=== PATIENT | male | born 2000 | race Caucasian/White ===

== ENCOUNTER 2025-01-28 07:33 | Outpatient (CLI) | payer BC, SELFPAY | END 2025-01-28 07:34 | disposition home or self-care (01) | LOC: AMB 01-29 09:32 | PROVIDERS: Visit Provider Family Medicine | DX: R10.9 Unspecified abdominal pain (principal); R11.2 Nausea with vomiting, unspecified | CPT/HCPCS: A0425; A0433 ==

== ENCOUNTER 2025-01-28 08:02 | Emergency (ER) | payer BC, SELFPAY ==
[2025-01-28] VITALS (9 sets, daily range): BP systolic 117–122; BP diastolic 62–64; PULSE 70–88; RESP 20–24; TEMP 37.5; O2SAT 93–100; BMI 18.0
--- NOTE | 2025-01-28 08:23 | CRLHL7_ITS ---
For Patients: As a result of the Century Cures Act, medical imaging exams and procedure reports are released immediately into your electronic medical record. You may view this report before your referring provider. If you have questions, please contact your health care provider. Indication: Lower abdominal pain Technique: Volumetric multidetector CT images of the abdomen and pelvis were obtained after the administration of intravenous contrast. 69 cc Isovue 370 low osmolar intravenous contrast Comparison: None available. Findings: The lung bases are clear. The liver is normal in attenuation without intrahepatic biliary ductal dilatation. The portal vein is patent. The gallbladder is unremarkable without evidence of radiopaque calculus. There is no significant common biliary ductal dilatation or abrupt cut off. The spleen is normal in enhancement and size. The stomach and duodenum are grossly unremarkable. The pancreas is normal in enhancement without significant atrophy. The adrenal glands are unremarkable. The kidneys demonstrate preserved corticomedullary differentiation without evidence of obstructive uropathy. There is minimal nonspecific fluid distention of the mid to distal small bowel. There is moderate stool within the proximal colon. There is decompressed appearance of the distal colon. No overt pericolonic inflammatory change is identified. The appendix is not well visualized secondary to patient body habitus and paucity of intra-abdominal fat. No obvious inflammatory change within the right lower quadrant. There is no significant mesenteric, retroperitoneal, or pelvic sidewall lymph nodes. The aorta is nonaneurysmal. There is no significant atherosclerotic disease appreciated. The solid pelvic viscera are grossly unremarkable. There is no free fluid or free air. The anterior abdominal wall is intact without significant hernias. There is demonstration of small disc protrusions at the L4-L5 and L5-S1 levels. Mild straightening of the normal lumbar lordosis without evidence of acute osseous abnormality. Impression: 1. Minimal nonspecific fluid in the distal small bowel which may represent mild enteritis changes. Limited visualization of the appendix due to paucity of intra-abdominal fat and lack of oral contrast. 2. No other acute intra-abdominal abnormalities are appreciated. Please note that all CT scans at this facility use dose modulation, iterative reconstruction, and/or weight-based dosing when appropriate to reduce radiation dose to as low as reasonably achievable. Dictated by Dhruv Hsu MD @ 01/28/2025 9:08:36 AM (Electronically Signed)
--- NOTE | 2025-01-28 08:24 | ED_ITS ---
HPI - Abdominal Pain General Chief Complaint: Abdominal Pain Stated Complaint: Abdominal pain Time Seen by Provider: 01/28/25 08:13 History of Present Illness HPI narrative: This 24-year-old male comes in with abdominal pain that began last evening. He states that it is a constant pain in he did not sleep last night. He had recurrent episodes of vomiting and felt like he had constipation so he inserted a suppository which brought some diarrhea like results. He arrives with normal vital signs. He did receive IV dose of fentanyl and Zofran EN route here by ambulance personnel. Related Data Previous Rx's ?Medication ?Instructions ?Recorded ketorolac 10 mg tablet 10 mg PO Q8H 5 days #15 tabs 01/28/25 ondansetron HCl 4 mg tablet 4 mg PO Q6H #10 tabs 01/28/25 Allergies Allergy/AdvReac Type Severity Reaction Status Date / Time No Known Drug Allergies Allergy Verified 01/28/25 08:12 Review of Systems Status of ROS Reports: 10 or more systems reviewed and unremarkable except as noted in History and below Narrative Constitutional: No fevers, no weight gain or loss. Eyes: No discharge. No vision changes. HENT: No congestion, no sore throat, no ear pain. Cardiovascular: No chest pain, no palpitations. Respiratory: No shortness of breath, no wheezes, no cough. Gastrointestinal: Abdominal pain with vomiting as described above. Genitourinary: No dysuria, no hematuria. Musculoskeletal: Normal range of motion. Skin: No rashes, no pruritis. Neurological: No dizziness, weakness, sensory change, speech change. Endo/Heme/Allergies: No bruising or bleeding. No polydipsia. Pysch: no suicidality, no anxiety, no insomnia. All other systems reviewed and are negative. [facility] Social History Smoking Status: Never smoker Do you use any of these nicotine containing products: None How often do you have a drink containing alcohol: never AUDIT-C Alcohol total score: 0 Non-prescribed substance use: denies use Exam Narrative: Exam Narrative: Constitutional: Well-developed, well-nourished, no acute distress. HEENT: Normocephalic, atraumatic. Neck: Normal range of motion. Nontender. Supple. Heart: Regular. No murmurs. Normal rate. Intact distal pulses. Lungs: Clear to auscultation. No chest discomfort. No wheezes, rhonchi, or rales. Abdomen: Decreased bowel sounds. Diffuse tenderness across the lower abdomen. Rebound tenderness is present. Genitalia: Deferred. Back: No midline tenderness. Normal range of motion. Extremities: Normal range of motion. No injury. Skin: Intact. No rash. Warm. No erythema or pallor. Neurologic: No altered sensation. No weakness. Alert and oriented. Psychiatric: No suicidality. No anxiety or depression. No insomnia. Nursing notes and vitals signs are reviewed. Const: Vital Signs, click to edit/add: Vital Signs - 24 hr 01/28/25 08:05 01/28/25 08:49 01/28/25 09:00 Temperature 99.5 F Pulse Rate 88 70 Pulse Rate [Pulse Oximeter] 76 Respiratory Rate 20 Blood Pressure Blood Pressure [Ri ght Upper Arm] 122/62 Pulse Oximetry 100 98 96 Oxygen Delivery Me thod Room Air 01/28/25 09:02 Temperature Pulse Rate 75 Pulse Rate [Pulse Oximeter] Respiratory Rate 24 Blood Pressure 119/64 Blood Pressure [Ri ght Upper Arm] Pulse Oximetry 94 Oxygen Delivery Me thod Course Vital Signs Vital signs: Initial Vital Signs Temperature 99.5 F 01/28/25 08:05 Temperature Source Temporal Artery Scan 01/28/25 08:05 Pulse Rate 76 01/28/25 08:05 Respiratory Rate 20 01/28/25 08:05 Blood Pressure 122/62 01/28/25 08:05 Blood Pressure Mean 82 01/28/25 08:05 Blood Pressure Position Supine 01/28/25 08:05 Pulse Oximetry 100 01/28/25 08:05 Oxygen Delivery Method Room Air 01/28/25 08:05 Vital Signs Temperature 99.5 F 01/28/25 08:05 Pulse Rate 76 01/28/25 08:05 Respiratory Rate 20 01/28/25 08:05 Blood Pressure 122/62 01/28/25 08:05 Pulse Oximetry 100 01/28/25 08:05 Oxygen Delivery Method Room Air 01/28/25 08:05 Temperature 99.5 F 01/28/25 08:05 Pulse Rate 75 01/28/25 09:02 Respiratory Rate 24 01/28/25 09:02 Blood Pressure 119/64 01/28/25 09:02 Pulse Oximetry 94 01/28/25 09:02 Oxygen Delivery Method Room Air 01/28/25 08:05 Medications Administered Medications: Discontinued Medications Generic Name Dose Route Start Last Admin Trade Name Dedra PRN Reason Stop Dose Admin Sodium Chloride 1,000 mls @ 1,000 mls/hr 01/28/25 08:30 01/28/25 08:29 0.9 % Sodium Chloride 1000 Ml IV 01/28/25 09:29 1,000 mls/hr .Q1H SERGIO Administration MDM - Abdominal Pain MDM Narrative Medical decision making narrative: This patient comes in with abdominal pain and vomiting and is triggering symptoms that are suspicious enough for possible appendicitis. An IV was established EN route here any did receive fentanyl and Zofran which brought relief to his symptoms. A CT scan of the abdomen and pelvis is obtained and shows no acute findings. Additionally his lab results are reassuring. His white count is up slightly. The patient continues to feel significantly better. He did receive a half a L of normal saline intravenously. His symptoms are more suspicious for some type of gastroenteritis perhaps from a virus or a toxin. He is okay to be discharged home. I did provide prescription for Toradol and Zofran. Lab Data Labs: Lab Results 01/28/25 Range/Units 08:31 WBC 12.43 H (4.50-11.00) K/uL RBC 4.63 (4.30-5.90) m/uL Hgb 14.1 (13.5-17.5) gm/dL Hct 41.3 (37.0-53.0) % MCV 89 (80-100) fL MCH 31 (26-34) pg MCHC 34 (32-36) gm/dL RDW Coeff of Teodora 11.5 (11.5-15.5) % Plt Count 217 (140-440) K/uL Neut % (Auto) 90.2 H (42.0-72.0) % Lymph % (Auto) 4.3 L (20-44) % [place] % (Auto) 5.0 (0.0-11.0) % Eos % (Auto) 0.1 (0.0-7.0) % Baso % (Auto) 0.2 (0.0-3.0) % Neut # (Auto) 11.20 H (1.7-7.0) K/uL Lymph # (Auto) 0.50 L (0.90-2.90) K/uL [place] # (Auto) 0.60 (0.00-0.90) K/UL Eos # (Auto) 0.00 (0.00-0.50) K/uL Baso # (Auto) 0.00 (0.00-0.30) K/uL Abs Immat Gran (auto) 0.00 (0.00-0.30) K/uL Imm/Tot Granulo (auto) 0.2 % Sodium 136 (135-149) mmol/L Potassium 3.2 L (3.6-5.1) mmol/L Chloride 103 (96-114) mmol/L Carbon Dioxide 25 (20-32) mmol/L Anion Gap 8 (7-15) mEq/L BUN 11 (5-24) mg/dL Creatinine 0.7 (0.5-1.5) mg/dL Estimated Creat Clear 148.68 Estimated GFR 134 ml/min Glucose 116 H (60-115) mg/dL Calcium 8.8 (8.4-10.6) mg/dL Imaging Data CT scan - abdomen: Radiologist's impression: 1. Minimal nonspecific fluid in the distal small bowel which may represent mild enteritis changes. Limited visualization of the appendix due to paucity of intra-abdominal fat and lack of oral contrast. 2. No other acute intra-abdominal abnormalities are appreciated. Discharge Plan Discharge Clinical Impression: Gastroenteritis Patient Disposition: Home, Self-Care Condition: Improved Additional Instructions: Take medication as needed and directed. Take frequent sips of fluids and increase diet otherwise as tolerated. Follow up with MD return if worsening. Prescriptions: New ondansetron HCl 4 mg tablet 4 mg PO Q6H Qty: 10 0RF ketorolac 10 mg tablet 10 mg PO Q8H 5 Days Qty: 15 0RF Follow Up/Referrals: Provider,Not a Local [Primary Care Provider] - Stand Alone Forms: Map Decisions Info Instructions
[2025-01-28] MEDS: 0.9 % SODIUM CHLORIDE 1000 ml 1,000 ML IV (08:29)
[2025-01-28 08:39] LABS: Basophils Percent Auto 0.2 % (0.0-3.0); Eosinophils Percent Auto 0.1 % (0.0-7.0); Hematocrit 41.3 % (37.0-53.0); Hemoglobin* 14.1 gm/dL (13.5-17.5); Immature Granulocytes Pct Auto 0.2 %; Lymphocytes Percent Auto 4.3 % (20-44); Mean Corpuscular HGB Conc 34 gm/dL (32-36); Mean Corpuscular Hemoglobin 31 pg (26-34); Mean Corpuscular Volume 89 fL (80-100); Neutrophils Percent Auto 90.2 % (42.0-72.0); Platelet Count* 217 K/uL (140-440); RDW Coefficient of Variation % 11.5 % (11.5-15.5); Red Blood Count 4.63 m/uL (4.30-5.90); White Blood Count* 12.43 K/uL (4.50-11.00)
[2025-01-28 08:41] LABS: Slide Review Reflex No
[2025-01-28 08:48] LABS: Chloride* 103 mmol/L (96-114); Sodium* 136 mmol/L (135-149)
[2025-01-28 08:49] LABS: Potassium* 3.2 mmol/L (3.6-5.1)
[2025-01-28 08:51] LABS: Anion Gap 8 mEq/L (7-15); Blood Urea Nitrogen* 11 mg/dL (5-24); Carbon Dioxide* 25 mmol/L (20-32); Creatinine* 0.7 mg/dL (0.5-1.5); Est. Creatinine Clearance* 148.68; Estimated Glomerular Filt Rate 134 ml/min
[2025-01-28 08:52] LABS: Calcium* 8.8 mg/dL (8.4-10.6); Glucose* 116 mg/dL (60-115)
== END 2025-01-28 09:58 | disposition home or self-care (01) ==
PROVIDERS: Emergency Provider Emergency Medicine Emergency Medical Services
DX: K52.9 Noninfective gastroenteritis and colitis, unspecified (principal)
CPT/HCPCS: 36415; 74177; 80048; 85025; 99283; 99284; J7030; Q9967

== ENCOUNTER 2025-03-23 08:25 | Outpatient (CLI) | payer BC, SELFPAY | END 2025-03-23 08:26 | disposition home or self-care (01) | PROVIDERS: PCP Family Medicine; Visit Provider Family Medicine | DX: Z00.01 Encounter for general adult medical examination with abnormal findings (principal); R82.90 Unspecified abnormal findings in urine; Z11.1 Encounter for screening for respiratory tuberculosis; Z13.6 Encounter for screening for cardiovascular disorders; Z13.1 Encounter for screening for diabetes mellitus | CPT/HCPCS: 80061; 82947; 86480; 87086 ==